=== PATIENT | male | born 1990 | race African-American/Black ===

== ENCOUNTER 2021-11-16 11:32 | Emergency (ER) | payer OTHER ==
[~2021-11-16] VITALS: Ht 180.3 cm; Wt 72.0 kg
[2021-11-16 11:39] VITALS: BP 112/72
== END 2021-11-16 13:13 | disposition home or self-care (01) ==
LOC: ER 11:32
DX: M21.371 Foot drop, right foot (principal)
CPT/HCPCS: 99283; Z7610